=== PATIENT | female | born 1955 ===

== ENCOUNTER 2016-09-19 12:54 | Emergency (ER) | payer SELFPAY ==
--- NOTE | 2016-09-19 14:13 | ED ---
Emmanuel Puri Claudia, scribed for Travis Arevalo MD on 09/19/16 at 1336 . Syncope/Near Syncope - HPI Summary HPI Summary: 61 year old female presents to the ED post-syncopal episode this pm. Pt notes that he witnessed the episode and also notes that she has had these episode in the past when in a medial environment and or discussing medical procedures in detail. She was at the [facility] when the episode occurred where they were having their dog checked. The pt notes that she was not feeling well and knew she was going to faint and asked to sit where she then fainted for a few minutes. Pt notes that she did not hit her head or suffer any trauma since she remained in the chair during the syncopal episode. The pt and note that this was not out of the normal for her seeing as they were in a medical environment. Pt notes she is feeling much better since the episode and is ready to go home. - History Of Current Complaint Chief Complaint: EDSeizure Time Seen by Provider: 09/19/16 13:23 Hx Obtained From: Patient, Family/Mr Teacher Onset/Duration: Sudden Onset, Resolved Timing: Intermittent Episode Lasting - a few minutes Context: Witnessed Activity At Onset: At Rest Associated Head Trauma: No Alleviating Factor(s): Spontaneous Resolution Associated Signs And Symptoms: Other - tired PMH/Surg Hx/FS Hx/Imm Hx Previously Healthy: Yes Endocrine/Hematology History: Reports: Hx Diabetes Cardiovascular History: Reports: Hx Hypertension Infectious Disease History: Denies: Traveled Outside the [place] in Last 30 Days - Family History Known Family History: Positive: Diabetes - Social History Occupation: Unemployed Lives: With Family Alcohol Use: None Hx Substance Use: No Review of Systems Positive: Other - tired Eyes: Negative ENT: Negative Cardiovascular: Negative Respiratory: Negative Gastrointestinal: Negative Genitourinary: Negative Musculoskeletal: Negative Skin: Negative Positive: Syncope - resolved in ED Psychological: Normal All Other Systems Reviewed And Are Negative: Yes Physical Exam Triage Information Reviewed: Yes Vital Signs On Initial Exam: Initial Vitals Temp Pulse Resp BP Pulse Ox 99.1 F 65 16 147/55 100 09/19/16 13:22 09/19/16 13:22 09/19/16 13:22 09/19/16 13:22 09/19/16 13:22 Vital Signs Reviewed: Yes Appearance: Positive: Well-Appearing, No Pain Distress Skin: Positive: Warm, Skin Color Reflects Adequate Perfusion, Dry Head/Face: Positive: Normal Head/Face Inspection Eyes: Positive: Normal ENT: Positive: Normal ENT inspection Neck: Positive: Supple, Nontender Respiratory/Lung Sounds: Positive: Clear to Auscultation, Breath Sounds Present Cardiovascular: Positive: RRR Abdomen Description: Positive: Nontender, Soft Musculoskeletal: Positive: Normal Neurological: Positive: Normal Psychiatric: Positive: Affect/Mood Appropriate Diagnostics - Vital Signs Vital Signs Temp Pulse Resp BP Pulse Ox 09/19/16 13:22 99.1 F 65 16 147/55 100 - Laboratory Lab Statement: Any lab studies that have been ordered have been reviewed, and results considered in the medical decision making process. Course/Dx Course Of Treatment: Ms. Frias reported to me that this happens to her all the time and that she really doesn't want any tests done. She says she is feeling fine. From the story, this seems likely to be vasovagal syncope but I would be reassured by some negative testing and a period of monitored observation. - Diagnoses Provider Diagnoses: Vasovagal syncope Discharge - Discharge Plan Condition: Stable Disposition: HOME Patient Education Materials: Syncope (ED) Referrals: No Primary Care Phys,NOPCP [Primary Care Provider] - 2 Days Additional Instructions: Please follow-up with Primary Care Provider when you return home. The documentation as recorded by the Emmanuel shepherd Claudia accurately reflects the service I personally performed and the decisions made by me, Travis Arevalo MD.
[2016-09-19 15:14] VITALS: BP 146/60
== END 2016-09-19 15:19 | disposition home or self-care (01) ==
LOC: ED 12:54
DX: R55 Syncope and collapse (principal)
CPT/HCPCS: 99282